=== PATIENT | male | born 1955 | race Two or more races ===

== ENCOUNTER 2023-07-04 14:28 | Emergency (ER) | payer MEDICARE ==
[~2023-07-04] VITALS: Ht 182.9 cm; Wt 96.5 kg
[2023-07-04 15:08] VITALS: BP 161/82; PULSE 91; RESP 18; TEMP 97.7; O2SAT 95
[2023-07-04] MEDS: SILVER SULFADIAZINE 1 % TOPICAL CREAM 50GM TOP ONE (15:28)
[2023-07-04] MEDS ORDERED: CEPH500T PO (15:38)
== END 2023-07-04 15:38 | disposition home or self-care (01) ==
LOC: ER 14:28
DX: T25.211A Burn of second degree of right ankle, initial encounter (principal); T31.0 Burns involving less than 10% of body surface; Z79.899 Other long term (current) drug therapy; X12.XXXA Contact with other hot fluids, initial encounter; Y93.89 Activity, other specified; Y92.89 Other specified places as the place of occurrence of the external cause; Y99.8 Other external cause status
CPT/HCPCS: 16020